=== PATIENT | female | born 1950 | race Asian ===

== ENCOUNTER 2024-10-08 00:26 | Emergency (ER) | payer MEDICARE, OTHER ==
[~2024-10-08] VITALS: Ht 149.9 cm; Wt 59.0 kg
[~2024-10-08 00:26] MED LIST: ASPI-1450 PO; GUAI10 PO; LEVO750T68 PO
[2024-10-08 00:30] VITALS: TEMP 97.7
[2024-10-08] MEDS ORDERED: CLIN300C58 PO (00:43)
[2024-10-08] MEDS ORDERED: HYDR25TA2 PO (00:43)
[2024-10-08] MEDS ORDERED: IBUP-1492 PO (00:43)
[2024-10-08] MEDS ORDERED: CHLO473M6 PO (00:43)
[2024-10-08] MEDS ORDERED: HYDR-4062 PO (00:43)
[2024-10-08 01:34] LABS: EOSINOPHILS % (AUTO) 4.5 % (1.0-6.0); HEMOGLOBIN 11.7 g/dL (12.0-16.0); MONOCYTES # (AUTO) 0.5 K/uL (0.1-1.0); NEUTROPHILS # (AUTO) 3.4 K/uL (1.8-7.7); NEUTROPHILS % (AUTO) 66.5 % (40.0-70.0); RED CELL DISTRIBUTION WIDTH 14.3 % (11.5-14.5); WHITE BLOOD COUNT (AUTO) 5.1 K/uL (4.5-11.0)
[2024-10-08] MEDS: SODIUM CHLORIDE 0.9% 1,000 ML IV ONE (01:36)
[2024-10-08] MEDS: ONDANSETRON HCL 4 MG/2 ML VIAL IVP ONE (01:36)
[2024-10-08 01:38] LABS: BASOPHILS % (AUTO) 0.1 % (0.0-2.0); HEMATOCRIT 34.7 % (36-46); LYMPHOCYTES % (AUTO) 19.3 % (22.0-44.0); MEAN CORPUSCULAR HEMOGLOBIN 30.6 pg (26.0-34.0); MEAN CORPUSCULAR HGB CONC 33.7 G/dL (31.0-37.0); MEAN CORPUSCULAR VOLUME 91 fL (80-100); MONOCYTES % (AUTO) 9.6 % (2.0-9.0); PLATELET COUNT (AUTO) 90 K/uL (150-450); RED BLOOD CELL COUNT(AUTO) 3.82 MIL/uL (4.00-5.20)
[2024-10-08 01:40] LABS: ANION GAP 9 mmol/L (8-16); CALCIUM, TOTAL 8.1 mg/dL (8.8-10.5); CARBON DIOXIDE 24 mmol/L (22-29); CHLORIDE 94 mmol/L (98-107); CREATININE 0.65 mg/dL (0.60-1.30); GLOMERULAR FILTR. RATE CALC > 60 mL/min (>60); GLUCOSE,RANDOM 112 mg/dL (70-110); POTASSIUM 3.4 mmol/L (3.5-5.1); SODIUM SERUM 127 mmol/L (136-145); UREA NITROGEN, BLOOD 13 mg/dL (7-18)
[2024-10-08 01:47] LABS: ALANINE AMINOTRANSFERASE 29 U/L (12-78); ALBUMIN 2.9 g/dL (3.4-5.0); ALKALINE PHOSPHATASE 115 U/L (46-116); ASPARTATE AMINOTRANSFERASE 28 U/L (15-37); BILIRUBIN,TOTAL 1.6 mg/dL (0.1-1.0); TOTAL PROTEIN, SERUM 7.5 g/dL (6.4-8.2)
[2024-10-08] MEDS: MAGNESIUM SULFATE 2 GM/WATER 50 ML IV ONE (03:03)
[2024-10-08] MEDS: POTASSIUM CHL 10 MEQ/WATER 50 ML IV ONE (03:04)
[2024-10-08] MEDS ORDERED: ONDA-104 PO (04:44)
[2024-10-08 06:30] VITALS: BP 114/72; PULSE 61; RESP 17; O2SAT 96
[2024-10-08 07:31] LABS: GLUCOMETER DEV NAME(LOC) ER.7; GLUCOSE,POINT OF CARE 110 MG/DL (70-110)
== END 2024-10-08 06:32 | disposition home or self-care (01) ==
LOC: EMS 00:27
DX: E83.42 Hypomagnesemia (principal); E87.1 Hypo-osmolality and hyponatremia; E87.6 Hypokalemia; I10 Essential (primary) hypertension; Z98.890 Other specified postprocedural states; Z79.82 Long term (current) use of aspirin; Z88.0 Allergy status to penicillin; Z88.1 Allergy status to other antibiotic agents; Z88.2 Allergy status to sulfonamides; Z94.7 Corneal transplant status
CPT/HCPCS: 99285; 96365; 96361; 96366; 96375; 80048; 80076; 82962; 83735; 85025; 36415; J2405; J3480; J7030; J3475